=== PATIENT | male | born 1935 | race Caucasian/White ===

== ENCOUNTER 2022-01-31 00:43 | Inpatient (IN) | payer MEDICARE, OTHER ==
[~2022-01-31] VITALS: Ht 188 cm; Wt 106.0 kg
[2022-01-31 04:29] LABS: International Normalized Ratio 2.54; Prothrombin Time Results 25.1 Sec (9.7-11.5)
[2022-01-31 04:40] LABS: Bun/Creatinine Ratio 22.5 (12.0-20.0); Calcium, Blood 8.9 mg/dL (8.5-10.1); Creatinine, Blood 1.2 mg/dL (0.60-1.20); Magnesium, Blood 2.3 mg/dL (1.6-2.4); Potassium, Blood 3.3 mmol/L (3.5-5.5)
[2022-01-31] MEDS ORDERED: LEVFLO500 PO (05:10)
[2022-01-31] MEDS ORDERED: AMOCLA500 PO (05:11)
[2022-01-31] MEDS ORDERED: WARF2.5 PO (05:13)
[2022-01-31] MEDS ORDERED: THERA-D2000 UNIT PO (05:14)
--- NOTE | 2022-01-31 05:15 | NUR ---
CARE ASSUMPTION/SHIFT SUMMARY: RECEIVED REPORT FROM OLGA ED RN AT [facility] AT 0122. PATIENT ARRIVED TO PCU VIA EMS AT 0223. DENIES SOB, CHEST PAIN - COMPLAINS OF GENERAL WEAKNESS. PATIENT SINUS JANAK 58 UPON ADMITTANCE OTHER VS WNL ON RA. PATIENT TRANSFERRED FROM [facility] USING A SLIDER SHEET AND ASSISTANCE FROM 5 STAFF MEMBERS. PATIENT'S LOWER EXTREMETIES EDEMATOUS WITH ABRASIONS/SCABBING. SCATTERED BRUISING TO ARMS AND BUTTOCK. ATTENDS IN PLACE. PATIENT IS HARD OF HEARING, PLEASANT AND COOPERATIVE WITH CARE, AND BECOMES DISTRACTED WITH HIS STORYTELLING. PATIENT MEDICATION HX RECONCILED TO BEST OF CURRENT ABILITY. PATIENT REFERS TO HIS WARFARIN "RAT POISON" AND REFERS TO OTHER MEDICATIONS "COCKTAIL OF THINGS." AMIODARONE RUNNING PER EMAR. NO VTACH EPISODES TO THIS TIME. BED LOW WITH CALL LIGHT IN REACH. WILL CONTINUE TO MONITOR AND REPORT TO ONCOMING RN.
[2022-01-31] MEDS ORDERED: Carvedilol12.5 MG PO (10:25)
[2022-01-31] MEDS ORDERED: FURO40 PO (10:25)
[2022-01-31] MEDS ORDERED: ATOR20 PO (10:25)
[2022-01-31] MEDS ORDERED: LATA.005SO BOTHEYES (10:26)
[2022-01-31] MEDS ORDERED: TAMS.4ER PO (10:50)
[2022-01-31] MEDS ORDERED: LISI10 PO (10:50)
[2022-01-31] MEDS ORDERED: XARELTO20 MG PO (10:50)
[2022-01-31] MEDS ORDERED: LEVOBUNOLOL BOTHEYES (10:54)
[2022-01-31 12:00] LABS: Bun/Creatinine Ratio 22.9 (12.0-20.0); Creatinine, Blood 1.09 mg/dL (0.60-1.20); Potassium, Blood 3.3 mmol/L (3.5-5.5)
[2022-01-31 15:20] LABS: BASOPHILS ABSOLUTE AUTO 0.04 K/mm3 (0.00-0.23); BASOPHILS PERCENT AUTO 0 % (0-2); EOSINOPHILS ABSOLUTE AUTO 0.14 K/mm3 (0.00-0.68); EOSINOPHILS PERCENT AUTO 1 % (0-6); Hematocrit 33.1 % (37.0-53.0); Hemoglobin 10.8 g/dL (13.5-17.5); IMMATURE GRAN ABSOLUTE AUTO 0.08 K/mm3 (0.00-0.10); IMMATURE GRAN PERCENT AUTO 1 % (0-1); LYMPHOCYTES ABSOLUTE AUTO 1.55 K/mm3 (0.84-5.20); LYMPHOCYTES PERCENT AUTO 13 % (21-46); MONOCYTES ABSOLUTE AUTO 0.88 K/mm3 (0.16-1.47); MONOCYTES PERCENT AUTO 7 % (4-13); Mean Corpuscular HGB 32.8 pg (26.0-34.0); Mean Corpuscular HGB Conc 32.6 g/dL (31.5-36.5); Mean Corpuscular Volume 101 fL (80-100); Mean Platelet Volume 9.8 fL (9.1-12.4); NEUTROPHILS ABSOLUTE AUTO 9.42 K/mm3 (1.96-9.15); NEUTROPHILS PERCENT AUTO 78 % (41-73); Platelet Count 194 K/mm3 (150-400); RDW Coefficient Variation 14.6 % (11.7-14.2); Red Blood Cell Count 3.29 M/mm3 (4.30-5.90); White Blood Cell Count 12.11 K/mm3 (4.00-11.30)
--- NOTE | 2022-01-31 17:31 | NUR ---
SHIFT SUMMARY: ASSUMED CARE OF PT APPROX 0700 THIS AM AFTER RECEIVING REPORT FROM AURORA CASH. PT A&Ox4, ANSWERS QUESTIONS APPROPRIATELY, COOPERATIVE WITH CARE, LEVELOCK W/NO HEARING AIDS, GENERALLY WEAK. O2 SATS MAINTAINED >92% ON RA, PT DENIES SOB. NO ACUTE CARDIAC EVENTS, PT MAINTAINS SR W/PVC, HR 60-70s, PT DENIES CP. DR DOUGLAS TO BEDSIDE FOR ASSESSMENT THEN RETURNS TO DISCUSS TEST RESULTS AND PLAN OF CARE. PT TO TRANSITION TO PO AMIODARONE TONIGHT, PENDING ONE DAY STRESS TEST TOMORROW. PT TO BE NPO AT MIDNIGHT, NO CAFFEINE AFTER 1999 TONIGHT. PT STANDS AT BEDSIDE W/ 2 PERSON SBA AND FWW, USES URINAL W/OUT DIFFICULTY. AT THIS TIME, PT SITTING ON EDGE OF BED W/DINNER TRAY. CALL LIGHT WITHIN REACH. WILL CONTINUE TO MONITOR AND TREAT ACCORDINGLY UNTIL CHANGE OF SHIFT.
--- NOTE | 2022-01-31 19:51 | NUR ---
CARE ASSUMPTION: PATIENT IN BED WITH OLGA SOUSA AND ETTA RUTH, RNS AT BEDSIDE PREPPING PATIENT FOR POWERGLIDE IVS INFILTRATED. AURORA LERMA SUCCESSFULLY INSERTED RAMSEY POWERGLIDE. PATIENT TO HAVE STRESS TEST TOMORROW - NPO IN AM, NO CAFFEINE AFTER 1999. BED LOW WITH CALL LIGHT IN PLACE.
[2022-02-01 04:42] LABS: BASOPHILS ABSOLUTE AUTO 0.03 K/mm3 (0.00-0.23); BASOPHILS PERCENT AUTO 0 % (0-2); EOSINOPHILS ABSOLUTE AUTO 0.11 K/mm3 (0.00-0.68); EOSINOPHILS PERCENT AUTO 1 % (0-6); Hematocrit 32.8 % (37.0-53.0); Hemoglobin 10.8 g/dL (13.5-17.5); IMMATURE GRAN PERCENT AUTO 1 % (0-1); LYMPHOCYTES ABSOLUTE AUTO 1.55 K/mm3 (0.84-5.20); LYMPHOCYTES PERCENT AUTO 12 % (21-46); MONOCYTES ABSOLUTE AUTO 0.93 K/mm3 (0.16-1.47); MONOCYTES PERCENT AUTO 7 % (4-13); Mean Corpuscular HGB 32.4 pg (26.0-34.0); Mean Corpuscular HGB Conc 32.9 g/dL (31.5-36.5); Mean Corpuscular Volume 99 fL (80-100); NEUTROPHILS ABSOLUTE AUTO 10.22 K/mm3 (1.96-9.15); NEUTROPHILS PERCENT AUTO 79 % (41-73); Platelet Count 176 K/mm3 (150-400); RDW Coefficient Variation 14.3 % (11.7-14.2); RDW Standard Deviation 51.3 fL (35.1-46.3); Red Blood Cell Count 3.33 M/mm3 (4.30-5.90); White Blood Cell Count 12.94 K/mm3 (4.00-11.30)
[2022-02-01 04:57] LABS: International Normalized Ratio 1.92; Prothrombin Time Results 19.3 Sec (9.7-11.5)
[2022-02-01 05:02] LABS: Anion Gap 8 mmol/L (6-16); Blood Urea Nitrogen 18 mg/dL (8-24); Bun/Creatinine Ratio 17.5 (12.0-20.0); CHOL/HDL RATIO 1.8; CO2, Blood 26 mmol/L (21-32); Calcium, Blood 8.5 mg/dL (8.5-10.1); Chloride, Blood 108 mmol/L (98-108); Cholesterol 92 mg/dL (50-200); Creatinine, Blood 1.03 mg/dL (0.60-1.20); Glomerular Filtration Rate 72 (60-); Glucose, Blood 109 mg/dL (70-99); HDL Cholesterol 50 mg/dL (>39); LDL/HDL RATIO 0.4; Low Density Lipoprotein Chol 20 mg/dL (0-110); Potassium, Blood 3.5 mmol/L (3.5-5.5); Sodium, Blood 142 mmol/L (136-145); Triglycerides 109 mg/dL (30-160); Very Low Density Lipoprot Chol 21 mg/dL (6-32)
--- NOTE | 2022-02-01 05:18 | NUR ---
SHIFT SUMMARY: PATIENT DENIES SOB, CHEST PAIN, N/V/D. NO VTACH EPISODES. AMIODARONE DRIP STOPPED ~2100 AND PATIENT TRANSITIONED TO PO DOSE. PATIENT 2 PERSON ASSIST WITH FWW TO USE URINAL AT BEDSIDE - VERY STIFF WITH MOVEMENTS. PATIENT IN RECLINER AFTER MIDNIGHT AND REPORTED SLEEPING BETTER AFTER THAT TRANSITION. RAMSEY POWERGLIDE FLUSHES BUT DID NOT DRAW. PLAN FOR STRESS TEST TODAY AND PATIENT HAS BEEN NPO. PATIENT [place], A&O X4, PLEASANT AND COOPERATIVE WITH CARE. NO ADVERSE EVENTS THIS SHIFT. PATIENT IN RECLINER WITH CALL LIGHT IN REACH. WILL CONTINUE TO MONITOR AND REPORT TO ONCOMING RN.
--- NOTE | 2022-02-01 05:50 | NUR ---
CALLED PLACED TO DR. DOUGLAS AT THIS TIME. PATIENT'S QTC INCREASED FROM 492 TO 532 THIS AM. NEW ORDERS FOR 40 MEQ KCL PO NOW ENTERED. DO NOT HOLD AMIODARONE.
[2022-02-01 08:58] LABS: Calcium, Blood 8.6 mg/dL (8.5-10.1); Creatinine, Blood 0.89 mg/dL (0.60-1.20); Potassium, Blood 3.8 mmol/L (3.5-5.5)
--- NOTE | 2022-02-01 11:12 | NUR ---
Upon receiving a referral for spiritual care, I visit pt. After establishing therapeutic alliance, pt reveals his emotional pain, loss of significant relationships and fears about his current medical conditions. Pt also shares about his membership in the [employer] and his connection to the [employer]. I noramlize his feelings and provide therapeutic listening, prayer and gentle school counselor. Pt responds well to all intervaentions and shos ssigns of greater peace and hope. He voices appreciation and asks for me to return. I will continue to remain available.
[2022-02-01 16:27] LABS: Bun/Creatinine Ratio 16.8 (12.0-20.0); Calcium, Blood 8.5 mg/dL (8.5-10.1); Creatinine, Blood 0.95 mg/dL (0.60-1.20); Potassium, Blood 4.1 mmol/L (3.5-5.5)
--- NOTE | 2022-02-01 18:39 | NUR ---
SHIFT SUMMARY PT A&OX4, VSS/RA, TELE NSR PVC PAC 60-70 BPM. DENIES PAIN. BRET PO, ATE LATE BREAKFAST, DID NOT EAT LUNCH OR DINNER. AMB W/FWW & GB 1-2 PP MOD ASSIST, UP TO CHAIR T/O SHIFT. VOIDING WELL/URINAL. RAMSEY POWERGLIDE. WILL REPORT TO ONCOMING NOC RN.
--- NOTE | 2022-02-01 20:25 | NUR ---
ASSUMED CARE OF PATIENT AT APPROXIMATELY 1910 FROM CRYSTAL Villela RN. PATIENT ALERT AND ORIENTED X4; SLOW TO RESPOND AT TIMES AND HARD OF HEARING. PATIENT SITTING IN RECLINER DURING BEDSIDE REPROT. PATIENT DENIES PAIN, NUMBNESS, TINGLING, DIZZINESS, AND NAUSEA. PATIENT REPORTS HE HAS BACK PAIN IN THE BED AND PREFERS TO STAY IN THE CHAIR. 1-2 PERSON OUT OF BED TO URINATE. SR ON TELE; BP SOFT; OXYGEN SATURATION ABOVE 90% ON ROOM AIR. PG RAMSEY S/L. PATIENT REPORTS SKIN MARKINGS FROM "TAKING RAT POISON" REFERRING TO WARFARIN.
--- NOTE | 2022-02-01 20:34 | NUR ---
CALLED ENGINE ROOM HELPER TUYET TO ASK FOR CLARIFICATION BEFORE GIVING PM DOSE OF PO AMIODARONE WITH BLOOD PRESSURE SOFT IN 90'S WHEN SBP WAS 130-140'S PREVIOUSLY. NO ORDERS FOR PARAMETERS AND ORDERS TO GIVE PM DOSE OF AMIODRAONE TONIGHT; STATES MAY BE DUE TO IV LASIX GIVEN EARLIER TODAY.
[2022-02-02 04:18] LABS: BASOPHILS ABSOLUTE AUTO 0.02 K/mm3 (0.00-0.23); BASOPHILS PERCENT AUTO 0 % (0-2); EOSINOPHILS PERCENT AUTO 1 % (0-6); Hemoglobin 10.8 g/dL (13.5-17.5); IMMATURE GRAN ABSOLUTE AUTO 0.07 K/mm3 (0.00-0.10); IMMATURE GRAN PERCENT AUTO 1 % (0-1); LYMPHOCYTES ABSOLUTE AUTO 1.27 K/mm3 (0.84-5.20); LYMPHOCYTES PERCENT AUTO 13 % (21-46); MONOCYTES ABSOLUTE AUTO 0.77 K/mm3 (0.16-1.47); MONOCYTES PERCENT AUTO 8 % (4-13); Mean Corpuscular HGB 32.3 pg (26.0-34.0); Mean Corpuscular HGB Conc 32.7 g/dL (31.5-36.5); Mean Corpuscular Volume 99 fL (80-100); Mean Platelet Volume 9.6 fL (9.1-12.4); NEUTROPHILS ABSOLUTE AUTO 7.86 K/mm3 (1.96-9.15); NEUTROPHILS PERCENT AUTO 78 % (41-73); Platelet Count 175 K/mm3 (150-400); RDW Coefficient Variation 14.6 % (11.7-14.2); RDW Standard Deviation 52.4 fL (35.1-46.3); Red Blood Cell Count 3.34 M/mm3 (4.30-5.90); White Blood Cell Count 10.09 K/mm3 (4.00-11.30)
[2022-02-02 04:32] LABS: International Normalized Ratio 1.39; Prothrombin Time Results 14.3 Sec (9.7-11.5)
[2022-02-02 04:35] LABS: Bun/Creatinine Ratio 16.5 (12.0-20.0); Calcium, Blood 8.4 mg/dL (8.5-10.1); Creatinine, Blood 0.97 mg/dL (0.60-1.20)
--- NOTE | 2022-02-02 06:36 | NUR ---
[facility] NO ACUTE CHANGES.
--- NOTE | 2022-02-02 11:14 | NUR ---
Pt is sitting on a chair and alert. Pt talks at length about his life, his travels, his spiritual beliefs and his family unit complications. He tells me about his fears of and dying and the things he tells himself to try to feel comforted. I provide therapeutic listening, theological insights, companionship and prayer. Pt responds well and displays evidence of having a deeper genuine peace and a bighter perspective. I will continue to remain available.
--- NOTE | 2022-02-02 17:12 | NUR ---
SHIFT SUMMARY NO ACUTE CHANGES THIS SHIFT. PT UP IN THE RECLINER FOR THE MAJORITY OF THE SHIFT AND REQUIRES A 1-2 ASSIST TO USE THE URINAL. THE PT SEEMS DEPRESSED ABOUT THE CURRENT DECLINE IN HIS HEALTH. PALLIATIVE CARE CONSULTED.
[2022-02-03 04:35] LABS: BASOPHILS ABSOLUTE AUTO 0.02 K/mm3 (0.00-0.23); BASOPHILS PERCENT AUTO 0 % (0-2); EOSINOPHILS ABSOLUTE AUTO 0.14 K/mm3 (0.00-0.68); EOSINOPHILS PERCENT AUTO 2 % (0-6); Hematocrit 30.2 % (37.0-53.0); IMMATURE GRAN ABSOLUTE AUTO 0.05 K/mm3 (0.00-0.10); IMMATURE GRAN PERCENT AUTO 1 % (0-1); LYMPHOCYTES ABSOLUTE AUTO 1.33 K/mm3 (0.84-5.20); LYMPHOCYTES PERCENT AUTO 17 % (21-46); MONOCYTES ABSOLUTE AUTO 0.77 K/mm3 (0.16-1.47); MONOCYTES PERCENT AUTO 10 % (4-13); Mean Corpuscular HGB 32.4 pg (26.0-34.0); Mean Corpuscular HGB Conc 33.1 g/dL (31.5-36.5); Mean Corpuscular Volume 98 fL (80-100); Mean Platelet Volume 9.8 fL (9.1-12.4); NEUTROPHILS ABSOLUTE AUTO 5.73 K/mm3 (1.96-9.15); NEUTROPHILS PERCENT AUTO 71 % (41-73); Platelet Count 176 K/mm3 (150-400); RDW Coefficient Variation 14.5 % (11.7-14.2); RDW Standard Deviation 51.8 fL (35.1-46.3); Red Blood Cell Count 3.09 M/mm3 (4.30-5.90); White Blood Cell Count 8.04 K/mm3 (4.00-11.30)
[2022-02-03 04:57] LABS: International Normalized Ratio 1.39; Prothrombin Time Results 14.3 Sec (9.7-11.5)
[2022-02-03 04:58] LABS: Bun/Creatinine Ratio 21.4 (12.0-20.0); Calcium, Blood 8.2 mg/dL (8.5-10.1); Creatinine, Blood 1.17 mg/dL (0.60-1.20); Magnesium, Blood 1.9 mg/dL (1.6-2.4); Potassium, Blood 4.1 mmol/L (3.5-5.5)
--- NOTE | 2022-02-03 06:50 | NUR ---
SUMMARY NO ACUTE CHANGES NOTED THROUGH THE NIGHT. PT HAS BEEN ABLE TO SLEEP IN HIS BED. HE HAS PREVIOUSLY BEEN SLEEPING IN HIS CHAIR. PT DENIES CP/PRESSURE, HE HAS BACK PAIN WHEN MOVING BUT REFUSES PAIN MEDICATION. HE STATES IT IMPROVES WHEN HE IS STILL. PT IS VOIDING WNL, STANDS AT BEDISIDE WITH URINAL & 1-2 PERSON ASSIST. VSS, ON RA, EKG COMPLETED THIS AM. CALL LIGHT IN REACH, WCMARKO & REPORT TO DAY RN
[2022-02-03 11:33] LABS: Source, Urine Foley catheter
[2022-02-03 11:38] LABS: Appearance, Urine Clear (Clear); Bilirubin, Urine Neg (Neg); Blood, Urine Neg (Neg); Color, Urine Yellow (P-Yellow); Glucose Qualitative, Urine Neg (Neg); Ketones, Urine Neg (Neg); Leukocyte Esterase, Urine Neg (Neg); Nitrite, Urine Neg (Neg); Protein, Urine Neg (Neg); Urobilinogen, Urine NORM (Normal)
--- NOTE | 2022-02-03 17:30 | NUR ---
SHIFT SUMMARY; ASSUMED CARE AT 0700, A/A/0X3. WORKS WITH PHYSICAL THERAPY DURING SHIFT. SAT IN RECLINER CHAIR FOR APPROX 2 HOURS. DENNISON PLACED PER ORDER FOR I & O'S. 1 PERSON ASSIST WITH AMBULATION AND WALKER. CARE MANAGMENT WORKING ON SNIFF PLACEMENT. BLE REDNESS AND DRY FLAKY PEELING. EDEMA BILATERALLY. LEGS ELEVATED DURING SHIFT. VSS, WILL CONTINUE TO MONITOR AND TREAT UNTIL CHANGE OF SHIFT.
[2022-02-04 04:29] LABS: International Normalized Ratio 2.49; Prothrombin Time Results 24.6 Sec (9.7-11.5)
[2022-02-04 04:33] LABS: Bun/Creatinine Ratio 17.5 (12.0-20.0); Calcium, Blood 8.1 mg/dL (8.5-10.1); Creatinine, Blood 1.03 mg/dL (0.60-1.20); Magnesium, Blood 2.1 mg/dL (1.6-2.4); Potassium, Blood 3.3 mmol/L (3.5-5.5)
--- NOTE | 2022-02-04 05:39 | NUR ---
SHIFT SUMMARY PATIENT ALERT AND ORIENTED X4. 02 SATS >93% ON RA. HR SR 60s-70s, BP STABLE. DENNISON PATENT AND DRAINING TO GRAVITY. PATIENT UP TO RECLINER, HAS NOT SLEPT MUCH THROUGHT THIS SHIFT. POTASSIUM REPLACED. TAB ALARM ON AND CALL LIGHT IN REACH.
--- NOTE | 2022-02-04 06:58 | NUR ---
[facility] DOWN AND CHARTS/ORDERS NOT ACCESSIBLE FROM [phone] 02/03/22
--- NOTE | 2022-02-04 17:34 | NUR ---
SHIFT SUMMARY; ASSUMED CARE AT 0700, A/A/OX3. DENNISON CATH IN PLACE DRAINING TO GRAVITY. BLE EDEMA +3. UP TO CHAIR TODAY FOR SEVERAL HOURS WITH WALKER AND 1 PERSON ASSIST. LOW APPETITIE, MINIMAL INTAKE. DISCUSSED WITH DR. TOLENTINO. POSSIBLY DUE TO WELLBUTRIN PER DR. TOLENTINO. CONTINUE TO MONITOR AND UPDATE HOSPITALIST TOMORROW. VSS, NO ACUTE MEDICAL CHANGES, WILL CONTINUE TO MONITOR UNTIL CHANGE OF SHIFT.
--- NOTE | 2022-02-04 19:15 | NUR ---
ASSUMED CARE PATIENT DANGLING ON SIDE OF BED WITH BLANKET OVER SHOULDERS. BOWL OF BLUEBERRIES AND WATER ON BEDSIDE TABLE NEXT TO PATIENT. NO VISITORS IN ROOM AT THIS TIME. DENNISON APPEARS PATENT AND DRAINING TO GRAVITY. NO MEDICATIONS INF. REPORT COMPLETED WITH SHANTA Baez RN.
--- NOTE | 2022-02-05 00:09 | NUR ---
UPPER BACK PAIN PATIENT HAS C/O UPPER BACK PAIN AT BEGINNING OF SHIFT, FOR WHICH TYLENOL 650MG PO WAS ADMINISTERED AND PATIENT WAS REPOSITIONED TO SITTING IN RECLINER. UPON REASSESSMENT AND TRANSFERRING PATIENT BACK TO BED AT 0000 PATIENT C/O WORSENING UPPER BACK PAIN WHEN LYING IN BED. UNABLE TO REPOSITION PATIENT TO A COMFORTABLE POSITION AND CONTINUED C/O SHARP/STABBING UPPER BACK PAIN. CALL MADE TO DR. DUNLAP FOR UPDATE AND ORDERS RECEIVED FOR LIDODERM 4% PATCH PRN. PATIENT IS FOUND SLEEPING IN BED WITH NO SIGNS OF PAIN UPON ENTERING ROOM TO NOTIFY HIM OF NEW ORDERS. WILL CONTINUE TO MONITOR FOR BACK PAIN AND MEDICATE WITH LIDODERM PATCH PER EMAR. BED IN LOW POSITION, SIDE RAILS UP, CALL LIGHT IN REACH.
--- NOTE | 2022-02-05 03:23 | NUR ---
ECTOPY PATIENT BEGAN HAVING INCREASED PVC'S. RECHECKED LAB ORDERS FOR AM AND ONLY LAB ORDERED IS A PT. CALL MADE TO DR. DUNLAP WITH NEW ORDERS TO ADD A CBC, RENAL FUNCTION PANEL, AND MAGNESIUM LEVEL. ORDERS PLACED AND LAB CURRENTLY DRAWING BLOOD.
[2022-02-05 03:35] LABS: BASOPHILS ABSOLUTE AUTO 0.02 K/mm3 (0.00-0.23); BASOPHILS PERCENT AUTO 0 % (0-2); EOSINOPHILS ABSOLUTE AUTO 0.25 K/mm3 (0.00-0.68); EOSINOPHILS PERCENT AUTO 4 % (0-6); Hematocrit 29.5 % (37.0-53.0); Hemoglobin 9.5 g/dL (13.5-17.5); IMMATURE GRAN ABSOLUTE AUTO 0.03 K/mm3 (0.00-0.10); IMMATURE GRAN PERCENT AUTO 0 % (0-1); LYMPHOCYTES ABSOLUTE AUTO 0.94 K/mm3 (0.84-5.20); LYMPHOCYTES PERCENT AUTO 14 % (21-46); MONOCYTES PERCENT AUTO 12 % (4-13); Mean Corpuscular HGB Conc 32.2 g/dL (31.5-36.5); Mean Corpuscular Volume 99 fL (80-100); Mean Platelet Volume 9.7 fL (9.1-12.4); NEUTROPHILS ABSOLUTE AUTO 4.92 K/mm3 (1.96-9.15); NEUTROPHILS PERCENT AUTO 71 % (41-73); Platelet Count 182 K/mm3 (150-400); RDW Coefficient Variation 14.3 % (11.7-14.2); Red Blood Cell Count 2.97 M/mm3 (4.30-5.90); White Blood Cell Count 6.96 K/mm3 (4.00-11.30)
[2022-02-05 03:53] LABS: Albumin, Blood 2.2 g/dL (3.4-5.0); Anion Gap 7 mmol/L (6-16); Blood Urea Nitrogen 22 mg/dL (8-24); Bun/Creatinine Ratio 19.3 (12.0-20.0); CO2, Blood 27 mmol/L (21-32); Chloride, Blood 103 mmol/L (98-108); Creatinine, Blood 1.14 mg/dL (0.60-1.20); Glomerular Filtration Rate 63 (60-); Glucose, Blood 81 mg/dL (70-99); Magnesium, Blood 2.2 mg/dL (1.6-2.4); Phosphorus, Blood 2.5 mg/dL (2.5-4.9); Potassium, Blood 2.9 mmol/L (3.5-5.5); Sodium, Blood 137 mmol/L (136-145)
[2022-02-05 03:58] LABS: Prothrombin Time Results 47.3 Sec (9.7-11.5)
[2022-02-05 03:59] LABS: International Normalized Ratio 5.01
--- NOTE | 2022-02-05 04:04 | NUR ---
CRITICAL INR CRITICAL RESULT RECIEVED FOR INR OF 5.01-INCREASED FROM 2.49 YESTERDAY. NO SIGNS OR SYMPTOMS OF BLEEDING ON ASSESSMENT. COUMADIN DC'D YESTERDAY. CALL MADE TO DR. DUNLAP WITH THE ABOVE INFORMATION-NO NEW ORDERS RECEIVED. CHARGE NURSE NOTIFIED. WILL CONTINUE TO MONITOR FOR SIGNS/SYMPTOMS OF BLEEDING.
--- NOTE | 2022-02-05 04:54 | NUR ---
SHIFT SUMMARY PATIENT SLEPT FOR 2-3 HOURS DURING SHIFT. UPPER BACK PAIN PERSISTS DESPITE REPOSITIONING, HEAT PAD, LIDOCAINE PATCH, AND TYLENOL. PATIENT FREQUENTLY ANSWERS "I DON'T KNOW" WHEN ASKED ABOUT PAIN AND RELIEF MEASURES. MOANS AND GROANS IN BED WHEN NOT SLEEPING. PATIENT BEGAN HAVING INCREASED ECTOPY IN THE EARLY HOURS OF THE MORNING-SEE NURSE NOTE "ECTOPY". POTASSIUM RESULTED AT 2.9 AND MAG 2.2-KCL 40MEQ IV X 1 ORDERED. PATIENT BEGAN EXPERIENCING BURNING WITH KCL INF. NS TKO ADDED WITH KCL CONCURRENTLY RUNNING TO DILUTE POTASSIUM AND RELIEVE BURNING. CRITICAL INR OF 5.9 THIS AM-SEE NURSE NOTE "CRITICAL INR". NO SIGNS/SYMPTOMS OF BLEEDING OR NEW ORDERS. DENNISON DRAINED 1050ML OF YELLOW CLOUDY URINE. PATIENT WAS ABLE TO EAT 30% OF A CHOCOLATE PUDDING AND A FEW BITES OF A CODEY CRACKER WITH PO WATER INTAKE OF 420ML. STILL C/O DECREASED APPETITE AND NAUSEA-BUT DESCRIPTION OF FELT NAUSEA MIMICS DECREASED APPETITE, NOT NAUSEA SUCH "NOTHING SOUNDS GOOD" AND "I DON'T KNOW WHAT I WANT TO EAT". NO OTHER CHANGES DURING SHIFT.
--- NOTE | 2022-02-05 18:53 | NUR ---
DAY SHIFT SUMMARY PT ORIENTED X4, MUMBLES AT TIMES AND DEPRESSED/FLAT AFFECT. SR ON TELEMETRY. VSS PER PT TREND ON RA. COMPLAINTS OF "SHOOTING SPINAL PAIN" THAT ISN'T CONSISTENT. HEATING PAD, LIDOCAINE PATCH, REPOSITIONING AND TYLENOL ATTEMPTED W/SOME RELIEF. REDNESS/PEELING TO BILATERAL SHINS, EDEMATOUS. DENNISON CATHETER IN PLACE DRAINING YELLOW CLEAR URINE W/ADEQUATE OUTPUT. POOR PO INTAKE, ENCOURAGING ORAL CARE AND OFFERING SNACKS. WEAK BUT WORKED WITH PT ASSIST X1-2 TODAY. WILL PASS ON TO NOC RN
[2022-02-06 04:40] LABS: BASOPHILS ABSOLUTE AUTO 0.02 K/mm3 (0.00-0.23); BASOPHILS PERCENT AUTO 0 % (0-2); EOSINOPHILS ABSOLUTE AUTO 0.33 K/mm3 (0.00-0.68); EOSINOPHILS PERCENT AUTO 4 % (0-6); Hematocrit 27.1 % (37.0-53.0); Hemoglobin 8.9 g/dL (13.5-17.5); IMMATURE GRAN ABSOLUTE AUTO 0.04 K/mm3 (0.00-0.10); IMMATURE GRAN PERCENT AUTO 1 % (0-1); LYMPHOCYTES ABSOLUTE AUTO 1.12 K/mm3 (0.84-5.20); LYMPHOCYTES PERCENT AUTO 14 % (21-46); MONOCYTES ABSOLUTE AUTO 0.86 K/mm3 (0.16-1.47); MONOCYTES PERCENT AUTO 11 % (4-13); Mean Corpuscular HGB 32.1 pg (26.0-34.0); Mean Corpuscular HGB Conc 32.8 g/dL (31.5-36.5); Mean Corpuscular Volume 98 fL (80-100); Mean Platelet Volume 10.6 fL (9.1-12.4); NEUTROPHILS ABSOLUTE AUTO 5.85 K/mm3 (1.96-9.15); NEUTROPHILS PERCENT AUTO 71 % (41-73); Platelet Count 249 K/mm3 (150-400); RDW Coefficient Variation 14.1 % (11.7-14.2); RDW Standard Deviation 50.9 fL (35.1-46.3); Red Blood Cell Count 2.77 M/mm3 (4.30-5.90); White Blood Cell Count 8.22 K/mm3 (4.00-11.30)
[2022-02-06 04:59] LABS: Bun/Creatinine Ratio 17.4 (12.0-20.0); Calcium, Blood 7.4 mg/dL (8.5-10.1); Creatinine, Blood 1.09 mg/dL (0.60-1.20); Phosphorus, Blood 2.3 mg/dL (2.5-4.9); Potassium, Blood 3.3 mmol/L (3.5-5.5)
[2022-02-06 05:04] LABS: Prothrombin Time Results 52.4 Sec (9.7-11.5)
[2022-02-06 05:12] LABS: International Normalized Ratio 5.58
--- NOTE | 2022-02-06 05:49 | NUR ---
CRITICAL INR CALLED DR DUNLAP REGARDING CRITICAL INR LAB OF 5.58 FROM 5.01. PT HAS NO VISIBLE BLEED AND NOT RECEIVING WARFRIN. NO FURTHER ORDERS.
--- NOTE | 2022-02-06 05:51 | NUR ---
SHIFT SUMMARY PT IS ALERT AND ORIENTED. THERE HAVE BEEN NO ACUTE CHANGES WITH PT. PT DENIES CHEST PAIN/PRESSURE. VITALS ARE STABLE AND PT IS ON ROOM AIR WITH SATS ABOVE 92%. PT IS A 2 ASSIST WITH A FWW FOR BED TO CHAIR MOVEMENT. DENNISON IN PLACE AND DRAINING TO GRAVITY. PT COOPERATIVE WITH CARE. CALL LIGHT IS WITHIN REACH.
--- NOTE | 2022-02-06 11:06 | NUR ---
CARE ASSUMPTION THIS RN ASSUMED CARE FROM MARIOLA SIMON AT 0700. VSS. TELE SR WITH PVCS 70S. PATIENT IS ALERT AND ORIENTED X4. PERRLA. NEURO INTACT. PATIENT REPORTS NO PAIN AT THIS TIME. PATIENT REPORTS NO CHEST PAIN/PRESSURE. +2 EDEMA IN LOWER EXTREMITIES. STRONG RADIAL PULSES BILATERALLY AND FAINT PEDIS. PATIENT REPROTS NO SHORTNESS OF BREATH. CLEAR UPPER LOBES AND DIM LOWER LOBES. PATIENT ABD IS MILD DISTENDED NONTENDER AND ACTIVE. PATIENT DENNISON CATH DRAINING WITH GRAVITY, CLEAR YELLOW. PATIENT RIGHT FRY HAS AN OLD BILSTER THAT IS PEELING. LOWER EXTREMITIES HAVE RED COLORATION. SEE SHIFT ASSESSMENT FOR FURTHER DETAILS. 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 PATIENT IS A VERY GOOD HISTORIAN. PATIENT IS INDEPDENT AT BASELINE AND LIVES BY HIMSELF IN [place]. PHYSICAL THERAPY WORKED WITH THE PATIENT. PATIENT IS A ONE ASSIST WITH GATE BELET AND FRONT WHEEL WALKER. PATIEINT IS ABLE TO DO OWN ADLS. ISTRATE IN TO SEE THE PATIENT THIS AM. DISCUSSED POSSIBLE DISCHARGE PENDING THE PATIENTS INR RESULTS THIS AFTERNOON. PLAN OF CARE UP TO DATE. CALL LIGHT WITHIN REACH AND BED IN LOWEST POSITION.
--- NOTE | 2022-02-06 13:28 | NUR ---
Spiritual care visit conducted . Visit was short due to medical staff needing to interact with pt. Provided prayer and encouragement. Pt responds well and voices appreciation for hte visit.
[2022-02-06 15:54] LABS: International Normalized Ratio 3.66
[2022-02-06 16:16] LABS: Prothrombin Time Results 35.3 Sec (9.7-11.5)
--- NOTE | 2022-02-06 17:05 | NUR ---
SHIFT SUMMARY PATIENT NEURO REMAINS INTACT. VSS. PLAN IS FOR PATIENT TO DISCHARGE TOMORROW DEPENDING ON IF THERE IS A BED AVAILABLE AT A NURSING HOME FACILITY OR RETURN HOME. IT IS ENCOURAGED THAT THE PATIENT GOES TO A NURSING HOME FACILITY DUE TO PATIENT LIVING ALONE AND STILL NEEDING SOME ASSISTANCE WHEN GETTING UP AND OUT OF BED. THIS RN DISCUSSED IT WITH CASE MANAGEMENT AND THEY SAID THAT SOMEONE FROM [place] WAS SUPPOSED TO COME BY TODAY. THIS RN DID NOT SEE ANYONE FROM [facility] NEITHER DID MAINTENANCE PIPEFITTER, MAINTENANCE PIPEFITTER SAID SHE WOULD FOLLOW UP WITH THE REHAB CENTER. SANJANA HAS REPORTED OFF AND ON TODAY OF BACK PAIN. THIS RN MEDCIATED FOR THE PAIN AND REPOSITIONED POSITIONED PATIENT. PATIENT HAD A NEW FENTANYL PATCH PLACED TODAY TO RIGHT UPPER SHOULDER. LIDOCAINE PATCH ON BACK REMVOED DUE TO COMING OFF FROM REPOSITIONING AND IT BEING PAST 8 HOURS. PLAN OF CARE UP TO DATE. DENNISON CATH DRAINING WITH GRAVITY. CALL LIGHT WITHIN REACH AND BED IN LOWEST POSITION. WILL CONTINUE TO MONITOR AND PROVIDE CARE UNTIL HAND OFF WITH NEXT SHIFT.
[2022-02-07 05:13] LABS: International Normalized Ratio 3.29
[2022-02-07 05:15] LABS: Phosphorus, Blood 2.6 mg/dL (2.5-4.9); Potassium, Blood 2.8 mmol/L (3.5-5.5)
--- NOTE | 2022-02-07 05:32 | NUR ---
shift summary pt rested well through the night. alert and oriented, able to make needs known. cooperative with plan of care. sats >95% on room air. no c/o chest pain, but is complaining of r shoulder pain - wearing fent patch, and patient feels it's helping a little bit. stephens in place, draining to gravity, john paul care performed. vss. call light within reach, bed in lowest position. will continue to monitor.
[2022-02-07] MEDS ORDERED: ATOR10 PO (11:24)
[2022-02-07] MEDS ORDERED: CARV3.125 PO (11:25)
[2022-02-07] MEDS ORDERED: FURO20 PO (11:26)
[2022-02-07] MEDS ORDERED: Lisinopril2.5 MG PO (11:27)
[2022-02-07] MEDS ORDERED: TAMS.4ER PO (11:27)
[2022-02-07] MEDS ORDERED: Acetaminophen650 M1 PO (11:28)
[2022-02-07] MEDS ORDERED: Celexa10 MG PO (11:29)
[2022-02-07] MEDS ORDERED: Amiodarone HCl200 MG PO (11:29)
[2022-02-07] MEDS ORDERED: FENTANYL1 EA10 TOP (11:29)
[2022-02-07] MEDS ORDERED: METO2.5 PO (11:30)
[2022-02-07] MEDS ORDERED: LIDO700A20 TOP (11:30)
[2022-02-07] MEDS ORDERED: POTCHL20ER PO (11:31)
[2022-02-07] MEDS ORDERED: ONDA4ODT MM (11:31)
--- NOTE | 2022-02-07 13:27 | NUR ---
Spiritual care visit conducted. Pt discusses his thoughts about going to a facility for rehabilitation vs. going directly home. Pt admits that he does not feel ready to go home but also has had poor experiences from several different SNFs and assisted living environments. We discuss the grief of the life he used to have and the strength and independence he used to possess. We talk about the postive friend support that he has and the wisdom, experience and light he still is able to give that can continue to bring meaning and purpose where ever he may dwell. We also discuss family unit complications and the people that he does trust. He also brings up his [employer] believes and is encouraged by prayer. He was silent for a few moments after the prayer offered today as he sat reflecting then said, "Sometimes it is hard to keep getting up and putting on a smile." We then reherse the many situations he has overcome in the past and what will serve him well going forward. Pt responds well to the therapeutic listening and gentle deputy chief counsel and voices much gratitude for the visit with indications of settling in on where his peace and direction lie.
--- NOTE | 2022-02-07 17:40 | NUR ---
SHIFT SUMMARY; ASSUMED CARE AT 0700, A/A/OX4. REPOSITIONS SELF ON GURNEY NEEDED. SBA TO CHAIR DURING SHIFT. WORKED WITH PHYSICAL THERAPY. DENNISON IN PLACE DRAINING CLEAR URINE TO GRAVITY. BLE EDEMA 2+. PLAN FOR DISCHARGE TO SNF IN NEXT DAY OR TWO. NO ACUTE MEDICAL CHANGES DURING SHIFT. WILL CONTINUE TO MONITOR AND TREAT UNTIL CHANGE OF SHIFT.
--- NOTE | 2022-02-08 05:22 | NUR ---
TOOL LIAISON SUMMARY PT IS ALERT AND ORIENTED COMMUNICATING APPROPRIATELY W STAFF THIS SHIFT. PT'S TELE SHOWING SR IN THE 60'S THIS SHIFT. BP WNL BUT SLIGHTLY ELEVATED THIS AM. O2 SATS >90% ON RM AIR ALL SHIFT. PT ABLE TO GET UP TO THE BSC W 1 PERSON ASSISTANCE SHOWING A VERY WEAK GAIT NEEDING THE FWW TO STABALIZE HIMSELF. PT ABLE TO SLEEP FOR MOST OF THE NIGHT. WILL REPORT TO ONCOMING RN.
[2022-02-08 05:28] LABS: International Normalized Ratio 3.2; Prothrombin Time Results 31.1 Sec (9.7-11.5)
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
--- NOTE | 2022-02-08 17:34 | NUR ---
SHIFT SUMMARY ASSUMED CARE AT 0700. A/A/OX3. REPOSITIONS SELF NEEDED. UP TO CHAIR AT BEDSIDE FOR A FEW HOURS, REPORTS NAUSEA, MEDICATED PER EMAR. VSS, DENNISON IN PLACE DRAINING CLEAR URINE TO GRAVITY. EDEMA TO LOWER EXTREMETIES IMPROVED FROM PREVIOUS SHIFTS. NO ACUTE MEDICAL CHANGES, WILL CONTINUE TO MONITOR AND TREAT UNTIL CHANGE OF SHIFT.
[2022-02-09 05:22] LABS: International Normalized Ratio 2.99; Prothrombin Time Results 29.2 Sec (9.7-11.5)
--- NOTE | 2022-02-09 06:36 | NUR ---
MR. LOPEZ SPENT THE MAJORITY OF HIS NIGHT UP IN THE CHAIR, SLEEPING OFF AND ON. HE STATED THAT HE JUST CAN'T GET COMFORTABLE IN THE BED. THIS MORNING HE REPORTED THAT HE WAS HAVING SOME ISSUE WITH NAUSEA WITH JUST SIPS OF WATER. HE WASN'T CONFIDENT THAT THE MEDICATION (PHENERGAN) HE RECEIVED YESTERDAY DID MUCH TO ALLEVIATE HIS NAUSEA. I DID OBTAIN AN ORDER FOR COMPAZINE SHOULD THE PHENERGAN NOT WORK WELL. THUS FAR, THE PATIENT REPORTS THAT HIS NAUSEA HAS LESSENED FOLLOWING THE PHENERGAN DOSE. WILL CONTINUE TO MONITOR. I DID SPEAK TO MR. LOPEZ ABOUT HIS LIMIED ORAL INTAKE OF FOOD AND THE ROLE OF GOOD NUTRITION IN HIS REHAB/RECOVERY PROCESS. HE REPORTS THAT HE DOESNT HAVE AN APPETITE AND ANYTHING HE EATS MAKES HIM NAUSEOUS. DISCUSSED PREMEDICATING FOR NAUSEA WITH MEALS. PATIENT IS OPEN TO TRYING THAT TO SEE IF IT MAY HELP.
[2022-02-09 09:57] LABS: BASOPHILS ABSOLUTE AUTO 0.03 K/mm3 (0.00-0.23); BASOPHILS PERCENT AUTO 0 % (0-2); EOSINOPHILS ABSOLUTE AUTO 0.45 K/mm3 (0.00-0.68); EOSINOPHILS PERCENT AUTO 5 % (0-6); Hematocrit 28.3 % (37.0-53.0); Hemoglobin 9.2 g/dL (13.5-17.5); IMMATURE GRAN ABSOLUTE AUTO 0.07 K/mm3 (0.00-0.10); IMMATURE GRAN PERCENT AUTO 1 % (0-1); LYMPHOCYTES ABSOLUTE AUTO 1.35 K/mm3 (0.84-5.20); LYMPHOCYTES PERCENT AUTO 14 % (21-46); MONOCYTES ABSOLUTE AUTO 0.48 K/mm3 (0.16-1.47); MONOCYTES PERCENT AUTO 5 % (4-13); Mean Corpuscular HGB 31.8 pg (26.0-34.0); Mean Corpuscular HGB Conc 32.5 g/dL (31.5-36.5); Mean Corpuscular Volume 98 fL (80-100); NEUTROPHILS ABSOLUTE AUTO 7.29 K/mm3 (1.96-9.15); NEUTROPHILS PERCENT AUTO 75 % (41-73); Platelet Count 403 K/mm3 (150-400); RDW Coefficient Variation 14.2 % (11.7-14.2); RDW Standard Deviation 50.6 fL (35.1-46.3); Red Blood Cell Count 2.89 M/mm3 (4.30-5.90); White Blood Cell Count 9.67 K/mm3 (4.00-11.30)
[2022-02-09 10:19] LABS: Calcium, Blood 7.6 mg/dL (8.5-10.1); Creatinine, Blood 1.35 mg/dL (0.60-1.20); Magnesium, Blood 1.7 mg/dL (1.6-2.4); Potassium, Blood 3.6 mmol/L (3.5-5.5)
--- NOTE | 2022-02-09 10:46 | NUR ---
CARE ASSUMPTION THIS RN ASSUMED CARE FROM AMINAH RN AT 0700. VSS. PATIENT IS ALERT AND ORIENTED X4. PERRLA. PATIENT REPORTS NO PAIN THIS AM. PATIENT REPORTS NO SHORTNESS OF BREATH. CLEAR UPPER LOBES AND DIM LOWER LOBE LUNG SOUNDS. PATIENT REPORTS NO CHEST PAIN/PRESSURE. STRONG RADIAL PULSES AND FAINT PEDIS PULSE. TRACE EDEMA TO LOWER EXTREMITIES. PATIENT SKIN HAS REDDNESS TO BOTTOM. ENCOURAGED PATIENT TO LAY IN BED ON SIDE, BUT PATIENT REFUSED. PATIENT SITTING IN CHAIR AT BEDSIDE. PATIENT HAS SOME PEELING SKIN ON RIGHT FRY FROM A BLISTER, AND SCATTERED BRUISING. PATIENT ABD IS ACTIVE AND NONTENDER. PATIENT IS A ONE PERSON WITH THE FRONT WHEEL WALKER AND GAIT BELT. SEE SHIFT ASSESSMENT FOR FURTHER INFORMATION. PATIENT DOES HAVE A FLAT AFFECT THIS AM. PATIENT WORKED WITH PHYSICAL THERAPY THIS AM AND AMBULATED IN THE HALLWAY. A REPERSENATIVE FROM [facility] WENT INTO PATIENT ROOM AT 1050, ONCE REPERASENTIVE LEAVES THE ROOM THIS RN WILL TOUCH BASE. PLAN OF CARE IS UP TO DATE AT THIS TIME. CALL LIGHT WITHIN REACH.
--- NOTE | 2022-02-09 10:59 | NUR ---
UPDATE JOSE ANGEL, THE [facility] REPERASENTIVE DID AON ONSIGHT EVALUATION AND IS GOING TO RETURN TO [facility] TO DISCUSS WITH THEIR TEAM, AND THEN WILL CONTACT OUR [facility]OOF [facility] IF THEY ARE GOING TO ACCEPT THE PATIENT FOR THEIR FACILITY.
--- NOTE | 2022-02-09 16:46 | NUR ---
SHIFT SUMMARY PATIENT NEURO REMAINS INTACT. WHEN REPOSITIONING PATIENT NOTICED A RED RASH ON ABD AND LEGS. PATIENT WAS SCRATCHING IT. THIS RN CALLED ISDREW TO INFORM HIM. ISTRATE ORDER AND NYSTAIN CREAM. THIS HELPED ALLIEVATE THE ITCHINESS. AWAITING TO HEAR BACK FROM [facility] TO DETERMINE IF THEY WILL TAKE THE PATIENT. PLAN OF CARE UP TO DATE. NO ACUTE CHANGES THIS SHIFT. SEE PERVIOUS NOTES. WILL CONINTUE TO MONITOR AND PROVIDE CARE UNTIL HAND OFF WITH NEXT SHIFT. BED IN LOWEST POSITION WITH CALL LIGHT WITHIN REACH.
[2022-02-10 04:56] LABS: International Normalized Ratio 2.05; Prothrombin Time Results 20.5 Sec (9.7-11.5)
--- NOTE | 2022-02-10 06:19 | NUR ---
NO ACUTE EVENTS OVERNIGHT LAST NIGHT. ORIANA WAS ABLE TO SLEEP FAIRLY WELL AND REMAINED IN BED FOR THE DURATION OF THE NIGHT, COMPARED TO THE PREVIOUS NIGHT WHEN HE WAS UP IN THE RECLINER MOST OF THE NIGHT. HE DOES APPEAR TO BE IN BETTER SPIRITS AND REPORTED THAT HE WAS ABLE TO EAT MORE OF EACH OF HIS THREE MEALS YESTERDAY COMPARED TO PREVIOUS DAYS.
[2022-02-10 09:12] LABS: Influenza A, PCR NEGATIVE (NEGATIVE); Influenza B, PCR NEGATIVE (NEGATIVE); Resp Syncytial Virus, PCR NEGATIVE (NEGATIVE); SARS-Cov-2 (COVID-19) PCR, MMC NEGATIVE (NEGATIVE)
--- NOTE | 2022-02-10 09:21 | NUR ---
CARE ASSUMPTION THIS RN ASSUMED CARE FROM AMINAH SIMON AT 0700. VSS. TELE SR. PATIENT IS ALERT AND ORIENTED X4. PERRLA. PATIENT REPORTS NO PAIN THIS AM. PATIENT REPORTS NO SHORTNESS OF BREATH AT REST, AND STATES SOMETIMES SHORT OF BREATH WITH EXERTION, SUCH MOVING TO THE CHAIR. PATIENT LUNG SOUNDS ARE DIM THROUGHOUT. PATIENT REPROTS NO CHEST PAIN/PRESSURE. STRONG RADAIL PULSES BILATERALY. +1EDEMA BILATERAL FEET,AND TRACE EDEMA TO BLE. PATEINT ABD IS MILD DISTENDED. DENNISON CATH IN PLACE THAT IS TO STAY IN PLACE WHEN DISCHARGE TO SNF DUE TO RETENTION. IT IS DRAINING WITH GRAVITY. SEE SHIFT ASSESSMENT FOR FURTHER DETAILS. TIMMY FROM CASE MANAGEMENT CALLED THIS RN TO NOTIFY THIS RN THAT THERE IS PLACEMENT AT [facility]. THIS RN CALLED MD ISTRATE AND INFORMED HIM. COVID TEST ORDERED AND COLLECTED AND DISCHARGE TO FACILITY ORDERS PUT IN PLACE. THIS RN INFORMED LIBRARY HELPER OF PLAN. THIS RN INFORMED THE PATIENT OF THE PLAN. PLAN IS TO LEAVE AT 1130. AWAITING COVID RESULTS. CALL LIGTH WITHIN REACH AND BED IN LOWEST POSITION. WILL CONTINUE TO MONITOR AND PROVIDE CARE.
--- NOTE | 2022-02-10 10:14 | NUR ---
REPORT TO ANTONELLA SHANNON RN THIS RN GAVE REPORT TO ANTONELLA SHANNON RN.
--- NOTE | 2022-02-10 11:20 | NUR ---
UPDATE THIS RN UPDATED PATIENT ALON GALARZA THAT THE PATIENT WILL BE TRANSPORTED TO [facility] AT 1130.
--- NOTE | 2022-02-10 11:46 | NUR ---
DISCHARGE TO FACILITY PATIENT LEFT VIA TRANSPORT AND WAS IN NO DISTRESS WHEN LEAVING. PATIENT BELONGINGS WITH PATIENT, WHICH PATIENT DIDNT HAVE ANY BELONGINGS WITH HIM BESIDES THE ITEMS FROM THE HOSPITAL.
== END 2022-02-10 11:40 | DRG 291 ==
LOC: PCU 00:43
PROVIDERS: Family Medicine; Internal Medicine; Internal Medicine Cardiovascular Disease; Pharmacist; ADMIT Internal Medicine
DX: I13.0 Hypertensive heart and chronic kidney disease with heart failure and stage 1 through stage 4 chronic kidney disease, or unspecified chronic kidney disease (principal); I50.33 Acute on chronic diastolic (congestive) heart failure; I47.2 Ventricular tachycardia; Z20.822 Contact with and (suspected) exposure to COVID-19; N18.30 Chronic kidney disease, stage 3 unspecified; F43.21 Adjustment disorder with depressed mood; Z66 Do not resuscitate; E83.42 Hypomagnesemia; E78.5 Hyperlipidemia, unspecified; I27.20 Pulmonary hypertension, unspecified; I95.9 Hypotension, unspecified; I48.0 Paroxysmal atrial fibrillation; B37.9 Candidiasis, unspecified; I35.0 Nonrheumatic aortic (valve) stenosis; G89.29 Other chronic pain; M54.50 Low back pain, unspecified; R94.31 Abnormal electrocardiogram [ECG] [EKG]; R77.8 Other specified abnormalities of plasma proteins; R79.1 Abnormal coagulation profile; E87.6 Hypokalemia; Z85.46 Personal history of malignant neoplasm of prostate; Z79.01 Long term (current) use of anticoagulants; Z86.711 Personal history of pulmonary embolism; Z87.891 Personal history of nicotine dependence; Z79.899 Other long term (current) drug therapy
CPT/HCPCS: 0241U; 36415; 71045; 78452; 80048; 80061; 80069; 81003; 82947; 83735; 84100; 84132; 84443; 84484; 85025; 85610; 93005; 93010; 93017; 93306; 96374; 96376; 97110; 97116; 97162; 97530; A9270; A9500; C1751; G0378; J0282; J0706; J1940; J2405; J2550; J2785; J3475; J3480; J7040; J7050; J7060